=== PATIENT | male | born 1955 | race Caucasian/White ===

== ENCOUNTER 2020-04-12 13:09 | Outpatient (CLI) | payer OTHER | END 2020-04-12 23:59 | disposition home or self-care (01) | LOC: CVU 13:09 | PROVIDERS: ATTEND Internal Medicine Cardiovascular Disease | DX: I11.9 Hypertensive heart disease without heart failure (principal); I08.8 Other rheumatic multiple valve diseases; I42.9 Cardiomyopathy, unspecified; E78.5 Hyperlipidemia, unspecified; E11.9 Type 2 diabetes mellitus without complications | CPT/HCPCS: 93306 ==

== ENCOUNTER 2021-01-25 15:40 | Outpatient (CLI) | payer OTHER | END 2021-01-25 23:59 | disposition home or self-care (01) | LOC: CVU 15:40 | PROVIDERS: ATTEND Internal Medicine Cardiovascular Disease | DX: I08.8 Other rheumatic multiple valve diseases (principal); R60.9 Edema, unspecified; I42.9 Cardiomyopathy, unspecified; M79.606 Pain in leg, unspecified | CPT/HCPCS: 93306; 93356 ==